=== PATIENT | male | born 1955 | race Caucasian/White ===

== ENCOUNTER → 2017-01-04 | Outpatient (CLI) | payer OTHER ==
[~2017-01-04] MED LIST: OXYC10TA6 PO; OXYC1TAB9 PO
[2017-01-04 13:46] LABS: BLOOD UREA NITROGEN 6 mg/dL (7-18); HEMATOCRIT 44.9 % (39.2-51.8); HEMOGLOBIN 15.8 g/dL (13.7-18.0); WHITE BLOOD COUNT 7.8 x10^3/uL (3.4-10)
[2017-01-04 14:58] LABS: HIV 1&2 ANTIBODY SCREEN Nonreactive (Nonreactive); HIV-1 p24 ANTIGEN Nonreactive (Nonreactive)
== END | disposition home or self-care (01) ==
LOC: STAR 12:37
PROVIDERS: ATTEND Orthopaedic Surgery
DX: Z01.818 Encounter for other preprocedural examination (principal); M17.12 Unilateral primary osteoarthritis, left knee; R79.1 Abnormal coagulation profile; Z79.899 Other long term (current) drug therapy
CPT/HCPCS: 36415; 80048; 83036; 85025; 85610; 85730; 86703; 87081; 87899; 93005; G0435

== ENCOUNTER 2017-01-09 10:08 | Inpatient (IN) | payer OTHER ==
[~2017-01-09] VITALS: Ht 177.8 cm; Wt 81.5 kg
[~2017-01-09 10:08] MED LIST changes: +EPINEPHRINE 1 MG/ML, 1ML ONE; +KETOROLAC 60 MG/2 ML ONE; +ROPIvacaine/PF 0.2%, 20 ML ONE; +SODIUM CHLORIDE 0.9% 50 ML ONE; +TRANEXAMIC ACID 100 MG/ML, 10ML ONE
[2017-01-09] MEDS ORDERED: VANCOMYCIN PER PHARMACY MC STA (10:38)
[2017-01-09] MEDS ORDERED: TRANEXAMIC ACID 100 MG/ML, 10ML ONE ×2 (11:09)
[2017-01-09] MEDS ORDERED: LACTATED RINGERS 1,000 ML IV SCH (11:24)
[2017-01-09] MEDS ORDERED: OxyconTIN ER 10 MG TAB.ER PO ONE (11:30)
[2017-01-09] MEDS ORDERED: GABAPENTIN 300 MG CAPSULE PO ONE (11:30)
[2017-01-09] MEDS ORDERED: LIDOCAINE 1%, 2ML SQ PRN (11:30)
[2017-01-09] MEDS ORDERED: ACETAMINOPHEN 500 MG TABLET PO ONE (11:30)
[2017-01-09] MEDS: VANCOMYCIN 1,600 MG in SODIUM CHLORIDE 0.9% 250 ML IV ONE ×2 (12:08→13:42)
[2017-01-09] MEDS ORDERED: ROPIvacaine/PF 0.5%, 30 ML ONE (13:18)
[2017-01-09] MEDS ORDERED: FENTANYL PF 100 MCG/2ML ONE ×3 (13:20→17:07)
[2017-01-09] MEDS ORDERED: MIDAZOLAM 1 MG/ML, 2ML ONE (13:21)
[2017-01-09] MEDS ORDERED: ONDANSETRON 2MG/ML, 2ML IV PRN (14:30)
[2017-01-09] MEDS ORDERED: DIPHENHYDRAMINE 50 MG CAPSULE PO PRN (14:30)
[2017-01-09] MEDS ORDERED: ONDANSETRON 4 MG TABLET PO PRN (14:30)
[2017-01-09] MEDS ORDERED: ALUMINUM/MAG/SIMETHICONE 30 ML UDC PO PRN (14:30)
[2017-01-09] MEDS ORDERED: BISACODYL 10 MG SUPP PR PRN (14:30)
[2017-01-09] MEDS ORDERED: MAGNESIUM HYDROXIDE 8%, 30ML UDC PO PRN (14:30)
[2017-01-09] MEDS ORDERED: HYDROmorphone 1 MG/ML, 1ML IV PRN ×2 (14:30→17:00)
[2017-01-09] MEDS ORDERED: SENNA/DOCUSATE TABLET PO PRN (14:30)
[2017-01-09] MEDS ORDERED: DIAZEPAM 5 MG TABLET PO PRN (14:30)
[2017-01-09] MEDS ORDERED: SCOPOLAMINE PATCH, 1.5MG PATCH.TD72 TD SCH (14:30)
[2017-01-09] MEDS ORDERED: ACETAMINOPHEN 650 MG/20.3 ML UDC PO PRN (14:30)
[2017-01-09] MEDS ORDERED: CEFAZOLIN 1,000 MG ONE (14:47)
[2017-01-09] MEDS ORDERED: PROPOFOL 10 MG/ML, 20ML ONE (14:47)
[2017-01-09] MEDS ORDERED: DEXAMETHASONE 4 MG/ML, 1ML ONE (14:47)
[2017-01-09] MEDS ORDERED: ONDANSETRON 2MG/ML, 2ML ONE (14:47)
[2017-01-09] MEDS ORDERED: DIAZEPAM 5 MG/ML, 2ML IVPush PRN (17:00)
[2017-01-09] MEDS ORDERED: LABETALOL 5MG/ML, 20ML IV PRN (17:00)
[2017-01-09] MEDS ORDERED: MEPERIDINE/PF 25MG/0.5ML IVPush PRN (17:00)
[2017-01-09] MEDS ORDERED: ONDANSETRON 2MG/ML, 2ML IVPush PRN (17:00)
[2017-01-09] MEDS ORDERED: hydrALAzine 20 MG/ML, 1ML IV PRN (17:00)
[2017-01-09] MEDS ORDERED: METOPROLOL 1 MG/ML, 5ML IV PRN (17:00)
[2017-01-09] MEDS ORDERED: MIDAZOLAM 1 MG/ML, 2ML IV PRN (17:00)
[2017-01-09] MEDS ORDERED: OXYcodone 5 MG/5 ML ORAL.SOL UDC PO PRN (17:00)
[2017-01-09] MEDS ORDERED: PROMETHAZINE 25 MG/ML, 1ML IV PRN (17:00)
[2017-01-09] MEDS ORDERED: FENTANYL PF 100 MCG/2ML IV PRN (17:00)
[2017-01-09] MEDS ORDERED: HYDROcodone/APAP 7.5-325MG/15ML UDC PO PRN (17:00)
[2017-01-09] MEDS ORDERED: ALBUTEROL SULFATE 2.5 MG/3 ML NPPB PRN (17:00)
[2017-01-09] MEDS ORDERED: EPHEDRINE 50 MG/ML, 1ML IVPush PRN (17:00)
[2017-01-09] MEDS ORDERED: OXYcodone 5 MG/5 ML ORAL.SOL UDC ONE ×2 (17:07→17:10)
[2017-01-09] MEDS ORDERED: VANCOMYCIN PER PHARMACY MC PRN (19:30)
[2017-01-09] MEDS ORDERED: PHARMACOKINETIC CONSULTATION MC ONE (20:00)
[2017-01-09] MEDS ORDERED: PHARMACOKINETIC MONITORING MC PRN (20:00)
[2017-01-09] MEDS ORDERED: DOCUSATE 100 MG CAPSULE PO SCH (21:00)
[2017-01-09] MEDS: D5%-0.45NACL+KCL 20MEQ 1,000 ML IV SCH (23:02)
[2017-01-09] MEDS: CEFAZOLIN PMX 1GM/50ML 50 ML IVPB SCH (23:02)
[2017-01-09] MEDS: OXYcodone IR 5MG TABLET PO PRN (23:02)
[2017-01-10] MEDS: D5%-0.45NACL+KCL 20MEQ 1,000 ML IV SCH (00:27)
[2017-01-10 00:29] VITALS: BP 94/59
[2017-01-10] MEDS ORDERED: VANCOMYCIN 1,500 MG in SODIUM CHLORIDE 0.9% 250 ML IV SCH (02:00)
[2017-01-10 02:47] VITALS: BP 105/64
[2017-01-10] MEDS: OXYcodone IR 5MG TABLET PO PRN ×2 (03:54→09:40)
[2017-01-10 05:21] LABS: HEMATOCRIT 33.7 % (39.2-51.8); HEMOGLOBIN 11.6 g/dL (13.7-18.0); WHITE BLOOD COUNT 12.1 x10^3/uL (3.4-10)
[2017-01-10 05:28] LABS: BLOOD UREA NITROGEN 10 mg/dL (7-18)
[2017-01-10] MEDS ORDERED: DEXAMETHASONE 4 MG/ML, 1ML IVPush SCH (06:00)
[2017-01-10] MEDS: CEFAZOLIN PMX 1GM/50ML 50 ML IVPB SCH (06:47)
[2017-01-10 07:10] VITALS: BP 148/79
[2017-01-10] MEDS ORDERED: DOCUSATE 100 MG CAPSULE PO SCH (09:00)
[2017-01-10] MEDS ORDERED: TAMSULOSIN 0.4 MG CAP.ER.24H PO SCH (09:00)
[2017-01-10] MEDS ORDERED: CELE200C PO (09:34)
[2017-01-10] MEDS ORDERED: ASPI-496 PO (09:34)
[2017-01-10] MEDS ORDERED: ONDA4TAB10 PO (09:35)
[2017-01-10] MEDS ORDERED: DOCU-131 PO (09:36)
[2017-01-10] MEDS ORDERED: TRAM50TA2 PO (09:36)
[2017-01-10] MEDS ORDERED: OXYC5CAP2 PO (09:38)
[2017-01-10] MEDS ORDERED: DIAZ5TAB PO (09:39)
[2017-01-10] MEDS ORDERED: PNEUMOCOCCAL 23 VACCINE IM-VACC ONE (10:00)
[2017-01-10 10:47] VITALS: BP 132/69
[2017-01-10] MEDS ORDERED: KETOROLAC 30 MG/1 ML IV SCH (14:30)
[2017-01-10] MEDS ORDERED: ASPIRIN 325 MG TABLET EC PO SCH (18:00)
== END 2017-01-10 11:30 | disposition home or self-care (01) | DRG 470 ==
LOC: ORIP 10:08 → 4NOR 19:16 → DCLOUNGE 01-10 11:10
PROVIDERS: ADMIT Orthopaedic Surgery; ATTEND Orthopaedic Surgery
PROC: 0SRC0J9 Replacement of Right Knee Joint with Synthetic Substitute, Cemented, Open Approach (ICD-10-PCS; principal; 2017-01-09 13:30)
DX: M17.11 Unilateral primary osteoarthritis, right knee (principal)
CPT/HCPCS: 36415; 82565; 84520; 85025; 90732; C1713; J0171; J0690; J1100; J1885; J2250; J2405; J2704; J2795; J3010; J3370; J3490; C1776; J3480; J7050; J7120

== ENCOUNTER → 2017-04-12 | Outpatient (CLI) | payer OTHER ==
[~2017-04-12] MED LIST changes: +ASPI-496 PO; +CELE200C PO; +DIAZ5TAB PO; +DOCU-131 PO; -EPINEPHRINE 1 MG/ML, 1ML ONE; -KETOROLAC 60 MG/2 ML ONE; +ONDA4TAB10 PO; +OXYC5CAP2 PO; -ROPIvacaine/PF 0.2%, 20 ML ONE; -SODIUM CHLORIDE 0.9% 50 ML ONE; +TRAM50TA2 PO; -TRANEXAMIC ACID 100 MG/ML, 10ML ONE
== END | disposition home or self-care (01) ==
LOC: RAD 13:49
PROVIDERS: ATTEND Physician Assistant Medical
DX: J45.991 Cough variant asthma (principal); R06.02 Shortness of breath
CPT/HCPCS: 71020

== ENCOUNTER → 2017-05-31 | Outpatient (CLI) | payer OTHER | END | disposition home or self-care (01) | LOC: RAD 11:38 | PROVIDERS: ATTEND Physician Assistant Medical | DX: M25.551 Pain in right hip (principal); M25.552 Pain in left hip | CPT/HCPCS: 73523 ==